=== PATIENT | female | born 1955 | race Caucasian/White ===

== ENCOUNTER 2018-04-23 18:24 | Observation (INO) ==
--- NOTE | 2018-04-23 23:00 | Internal Med History&Physical ---
Date of Encounter: 04/23/18 Time of Encounter: 23:02 Internal Medicine - H&P: HPI Chief complaint: slurred speech, raised troponin Admitted From: Hospital to Hospital Transfer Plans for Post Hospital Care: Home History of present illness: Ms. Renee is a 62 year old female Patient with history of hypothyroid secondary to thyroidectomy having difficulty in controlling thyroid level, hypertension, GERD, and grandmother had cardiac disease in mother had mini stroke in her 40s was transferred from [facility] for the evaluation of CVA workup and raised troponin. Patient states that she was doing okay until she started to feel whole-body shakiness with generalized weakness in whole body and slurred speech around 1: 30 PM when getting into the car to the commercial driver's seat. She exchanged the seat with her who drove the patient to the [facility] [place] after initial evaluation patient was transferred to [facility] for advance workup and care. CT head was negative. As per patient sometimes she get shakiness as a part of prior thyroid and was told by senior devops engineer to hold her thyroid medicine for 1 or 2 days therefore she did not take thyroid medicine today. She has an appointment with senior devops engineer this week. She denies perioral tingling or tingling to her arms or legs. She denies any localized numbness, tingling or weaknessor visual changes. She had chronic intermittent headache and had mild headache today. Patient denies fever chills chest pain, cough, melena, hemoptysis, abdominal pain urinary complaint or bowel complaint. She had shortness of breath throughout the episode of generalized shakiness today but after that resolved. She denies any shortness of breath at this time. During my interview patient denies any shakiness or weakness. Her slurred speech is also better . Patient denies smoking and alcohol history Past Med Surg Social Fam HX - Past Medical History Medical history: arthritis, GERD, hypertension, thyroid disease, other Additional medical history: Benign essential tremors. Psychiatric history: no psych history - Past Surgical History Surgical History: appendectomy, cholecystectomy, other Additional surgical history: Kidney stent right side, goiter removed from throat. - Social History Smoking Status: Never smoker Smokeless Tobacco Status: No Alcohol use: none Drug use: none Internal Medicine - H&P: Meds Levothyroxine Sodium [Synthroid] 275 mcg PO DAILY 12/16/15 [History] Lisinopril [Zestril] 40 mg PO DAILY 12/16/15 [History] Omeprazole Magnesium [Prilosec Otc] 40 mg PO DAILY 12/16/15 [History] Phenazopyridine HCl [Pyridium] 200 mg PO TIDAC #6 tab 04/14/18 [Rx] 3 Allergy/AdvReac Type Severity Reaction Status Date / Time Erythromycin Base Allergy Itching Verified 04/14/18 10:22 Penicillins [PCN] Allergy Difficulty Verified 04/14/18 10:22 Breathing All Systems PM: A 10-system review of systems was performed and is negative for pertinent findings except as documented above in the HPI. - Constitutional Vitals: Temp Pulse Resp BP Pulse Ox 97.9 F 81 16 117/75 96 04/23/18 20:51 04/23/18 20:51 04/23/18 20:51 04/23/18 20:51 04/23/18 20:51 Exam: General appearance: No acute distress, A&O X 3. Appears slightly anxious. Family at bedside, obese Head exam: Atraumatic Eye exam: EOMI, PERRLA ENT exam: Moist oral mucosa Neck nontender, supple Respiratory exam: Clear to auscultation bilaterally Cardiovascular exam: Regular rate and rhythm, no systolic murmur Abdominal exam: Soft, nontender, nondistended, positive bowel sounds Extremities exam: No calf tenderness, no pedal edema Present: Skin-no rash, warm, dry, intact Neurological exam: Alert, awake, oriented 3, CN II-XII intact, no focal deficits. No facial droop. Normal speech. Normal gait. No tremor. Motor 5 x 5 in all 4 extremities - Assessment and plan (1) Slurred speech Current Visit: No Status: Acute Assessment and plan: Slurred speech with generalized weakness. No focal neurological deficit on my examination. CT head negative. But patient has several risk factor including hypertension and family history and never had workup before. Will order MRI brain, carotid ultrasound, echocardiogram, PT OT and speech evaluation. Fall, aspiration, seizure precaution. Will consult neurologist if needed. Baby aspirin will be started. Fasting lipid profile ordered. (2) Elevated troponin I level Current Visit: No Status: Acute Assessment and plan: No active chest pain. Telemetry bed with serial troponin. Aspirin nitroglycerin statin and is started. Echocardiogram ordered. Will consult electric meter tester if further rise in troponin. (3) Hypertension Current Visit: No Status: Acute Assessment and plan: Well-controlled blood pressure. Continue close monitoring. Qualifiers: Hypertension type: essential hypertension Qualified Code(s): I10 - Essential (primary) hypertension (4) Hypothyroidism Current Visit: No Status: Acute Assessment and plan: Low TSH. Patient has hyperthyroidism like symptoms and get shakiness. Will hold thyroid medicine for tomorrow and resume after board. Close monitoring Qualifiers: Hypothyroidism type: postoperative Qualified Code(s): E89.0 - Postprocedural hypothyroidism (5) DVT prophylaxis Current Visit: No Status: Acute Assessment and plan: SCDs, heparin - Time Spent With Patient Total time spent is greater than 50% in coordination of care (as documented) at patient's floor/unit and/or counseling patient:
[2018-04-23] MEDS ORDERED: Naloxone 0.4 MG/ML INJ IVP PRN (23:02)
[2018-04-23] MEDS ORDERED: Dextrose Gel 15 GM/37.5 ML TUBE PO PRN ×2 (23:06)
[2018-04-23] MEDS ORDERED: D5% in Water 1,000 ML IVC PRN (23:06)
[2018-04-23] MEDS ORDERED: *HR* Dextrose 50 % in Water (Syg) 50 ML SYRINGE IVP PRN (23:06)
[2018-04-23] MEDS ORDERED: Nitroglycerin 0.4 MG TAB.SUBL SL PRN (23:06)
[2018-04-23 23:54] LABS: Prothrombin Time 11.6 Seconds (9.4-12.1)
[2018-04-24] MEDS ORDERED: *HR* Heparin 5,000 UNIT/ML VIAL IVP PRN (00:37)
[2018-04-24] MEDS ORDERED: *HR* Heparin 5,000 UNIT/ML VIAL IVP ONE (00:37)
[2018-04-24] MEDS: Insulin LISPRO 300 UNITS/3 ML VIAL SQ SCH ×4 (01:47→19:47)
[2018-04-24] MEDS: Acetaminophen 325 MG TABLET PO PRN (02:03)
[2018-04-24] MEDS: Heparin 25,000 UNIT/500 ML D5W 25,000 UNIT/500 ML BAG IVC SCH ×2 (02:07→23:45)
[2018-04-24] MEDS: 0.9 % Sodium Chloride 1,000 ML IVC SCH ×3 (02:16→20:20)
[2018-04-24] MEDS ORDERED: *HR* Heparin 5,000 UNIT/ML VIAL SQ SCH (06:00)
[2018-04-24 06:22] LABS: Bilirubin,Urine Negative (Negative); Blood,Urine Negative (Negative); Clarity,Urine Cloudy (Clear); Color,Urine Yellow (Yellow); Glucose,Urine (UA) Normal (Normal); Ketones,Urine Negative (Negative); Leukocyte Esterase,Urine Large (Negative); Nitrite,Urine Negative (Negative); Protein,Urine Negative (Neg-Trace); Specific Gravity,Urine 1.017 (1.010-1.025); Urobilinogen,Urine Normal (Normal)
[2018-04-24 06:26] LABS: Bacteria,Urine None Seen per hpf (None-Few); Hyaline Casts,Urine None Seen per lpf (None-Few); RBC,Urine 0-3 per hpf (0-3); Squamous Epithelial Cell,Urine Many per lpf (None-Few); WBC,Urine 30-50 per hpf (0-3)
[2018-04-24 06:46] LABS: Basophils # 0.1 K/mcL (0.0-0.2); Basophils % 0.7 %; Eosinophils # 0.3 K/mcL (0.0-0.6); Eosinophils % 4.4 %; Hematocrit 39.1 % (35.3-44.9); Hemoglobin 12.5 g/dL (11.5-15.4); Immature Granulocytes % 0.3 % (0-4); Lymphocytes # 2.1 K/mcL (0.6-4.6); Lymphocytes % 30.5 %; Mean Corpuscular Hemoglobin 28.2 pg (28.0-33.3); Mean Corpuscular Volume 88.3 fL (83.0-100.0); Mean Platelet Volume 10.9 fL (9.4-12.4); Monocytes # 0.7 K/mcL (0.0-1.3); Monocytes % 9.6 %; Neutrophils # 3.8 K/mcL (1.6-8.9); Platelet Count 185 K/mcL (140-400); Red Blood Count 4.43 M/mcL (3.82-4.97); Red Cell Distribution Width 13.9 % (11.5-14.5); Segmented Neutrophils % 54.5 %
[2018-04-24 07:10] LABS: BUN/Creatinine Ratio 19 (6-26); Blood Urea Nitrogen 18 mg/dL (8-23); Calcium 9.2 mg/dL (8.6-10.3); Carbon Dioxide 28 mEq/L (23-29); Chloride 109 mEq/L (98-107); Cholesterol 140 mg/dL (< 200); Glucose 92 mg/dL (70-105); HDL Cholesterol 35 mg/dL (40-59); LDL Cholesterol,Calculated 84 mg/dL (0-99); Osmolality,Calculated 296 (280-300); Potassium 4.1 mEq/L (3.5-5.1); Sodium 142 mEq/L (136-145); Triglycerides 106 mg/dL (< 150); eGFR For African Americans > 60 (> 60); eGFR For Non-African Americans 59 (> 60)
[2018-04-24 08:26] LABS: Heparin anti-factor XA UFH 0.29 IU/mL (0.30-0.70)
[2018-04-24 09:42] LABS: Activated Partial Thrombo Time 69.3 Seconds (26.0-36.0)
[2018-04-24] MEDS: Aspirin 81 MG TAB.CHEW PO SCH (10:27)
--- NOTE | 2018-04-24 10:52 | Cardiology Consult Note ---
<Gregoria Hatfield - Last Filed: 04/24/18 10:48> Date of Encounter: 04/24/18 Time of Encounter: 10:00 Assessment and Plan (1) Slurred speech Current Visit: No Status: Acute Per cardiology: -Admitted with slurred speach, headaches, weakness. -Head CT negative. -Brain MRI pending. -Management per primary service. (2) Elevated troponin Current Visit: Yes Status: Acute Per cardiology: -Troponins 0.06, 0.07, 0.07 in the setting of slurred speech, rule out CVA. Brain MRI pending, carotid pending. -Denies chest pain. -No acute ischemic ECG changes. -TTE with LVEF preserved, no segmental wall motion abnormalities. -ON asa, statin, heparin drip. -Do not suspect NSTEMI, suspect neurocardiogenic elevation in troponins. No cardiac rehab consult warranted at this time. -Will await brain MRI results. Will decide further cardiac work up pending brain MRI results. -Will start low dose beta patricia. (3) Palpitation Current Visit: Yes Status: Acute Per cardiology: -Reports "fluttering" -ECG with SR. -Telemetry reviewed with no arrythmias noted. -Occasional PVCs and occasional PACs. -Will start low dose beta patricia. Discussion w patient/family: The assessment and plan as outlined above was discussed with the patient who expressed understanding and agreement. All questions were answered. Thank you for involving us in the care of your patient. Please call with any questions. Discussed and reviewed with Dr.John Melgar. History of Present Illness Consult date: 04/24/18 Requesting physician: Katelyn Alvarez Consult reason: elevated troponin Chief complaint: weakness, slurred speach History of present illness: Ms. Renee is a 62 year old female with a relevant past medical history of hypothyroidism, GERD, depression, HTN, HLD who presented to [facility] with complaints of shakiness, difficulty walking. Patient also stated had a severe headache and slurred speech. Patient denies chest pain or shortness of breath. Does report increased fatigue. Patient also stated had some "fluttering" during epsisode. Past Med Surg Social Fam HX - Past Medical History Attestation: Yes The following information was validated with the patient. Source: patient, old records reviewed Medical history: arthritis, GERD, hyperlipidemia, hypertension, thyroid disease , other Additional medical history: Benign essential tremors. Psychiatric history: no psych history - Past Surgical History Surgical History: appendectomy, cholecystectomy, other Additional surgical history: Kidney stent right side, goiter removed from throat. - Social History Smoking Status: Never smoker Smokeless Tobacco Status: No Alcohol use: none Drug use: none Medications and Allergies Lisinopril [Zestril] 40 mg PO DAILY 12/16/15 [History] Omeprazole Magnesium [Prilosec Otc] 40 mg PO DAILY 12/16/15 [History] Levothyroxine [Levothyroxine Sodium] 274 mg PO DAILY 04/24/18 [History] Sucralfate [Carafate] 1 gm PO QID 04/24/18 [History] 3 Allergy/AdvReac Type Severity Reaction Status Date / Time Erythromycin Base Allergy Itching Verified 04/14/18 10:22 Penicillins [PCN] Allergy Difficulty Verified 04/14/18 10:22 Breathing All Systems Review: The remainder of the systems were reviewed and are negative - Constitutional Constitutional: headache(s), weakness - Cardiovascular Cardiovascular: as per HPI, palpitations - Neurological Neurological: abnormal speech Physical Examination Vital Signs, Last 4 Hours Temp Pulse Resp BP Pulse Ox 04/24/18 10:24 97.5 F L 60 16 114/73 95 04/24/18 07:32 97.9 F 57 16 115/75 96 General: Conversant, No Apparent Distress HEENT: Atraumatic, Normocephaly, Mucus Membranes Moist Neck: No JVD, Normal carotid pulses Cardiac: Reg Rate and Rhythm, Normal S1 and S2, No Murmur Lungs: Normal Breath Sounds, No Wheeze, Rales, Rhonchi Neuro: Alert and responsive, No focal deficits noted Abdomen: Soft, Non-Tender Skin: No rashes noted on visualized skin Musculoskeletal: No Chest Wall Tenderness Extremities: No Clubbing, No Cyanosis, No Edema, Normal Pulses Results 04/24/18 05:32 04/24/18 05:32 Lab Results Impressions Echocardiogram 04/24/18 08:00 Impressions: LVEF 55-60%. No evidence of PFO by color Doppler or agitated saline. If clinically indicated, elective DREW would provide improved diagnostic sensitivity for cardioembolic source. No pulmonary hypertension. No significant valvular dysfunction. Left Ventricular Wall Motion: Rest Echo Findings All wall segments showed normal motion. Findings: Study Quality * Technically adequate exam. Right Ventricle * Normal right ventricular structure and function. Right Atrium * Normal right atrial size. Interatrial Septum * No evidence of PFO by color Doppler or agitated saline Aorta * Normally sized aortic root. Pericardium * The pericardium appears normal. Left Atrium * Mildly dilated left atrium. Tricuspid Valve * Trace tricuspid regurgitation. * Estimated RVSP is 26 mmHg. * Estimated RA pressure is 0-5 mmHg. * No pulmonary hypertension. Aortic Valve * Trileaflet aortic valve. * Mildly calcified aortic valve leaflets. * No aortic regurgitation. * No aortic stenosis. Mitral Valve * Normal mitral valve structure. * No mitral stenosis. * Trace mitral regurgitation. IVC * Normal IVC dimensions and inspiratory collapse. Left Ventricle * No segmental dysfunction. * Normal left ventricular diastolic function. * LVEF 55-60%. Active Medications Acetaminophen (Tylenol) 650 mg PO Q6HR PRN PRN Reason: Headache Stop: 10/24/18 01:12 Last Admin: 04/24/18 02:03 Dose: 650 mg Aspirin (Aspirin) 81 mg PO DAILY OTONIEL Stop: 10/24/18 09:01 Last Admin: 04/24/18 10:27 Dose: 81 mg Atorvastatin Calcium (Lipitor) 20 mg PO HS OTONIEL Stop: 10/24/18 21:01 Dextrose/Water (Dextrose 50% (Syg)) 25 ml IVP AD PRN PRN Reason: Hypoglycemia Stop: 10/23/18 23:07 Glucagon (Glucagen) 1 mg IM ONCE PRN PRN Reason: Hypoglycemia Stop: 10/23/18 23:07 Glucose (Gluctose) 15 gm PO ONCE PRN PRN Reason: Hypoglycemia Stop: 10/23/18 23:07 Glucose (Gluctose) 30 gm PO ONCE PRN PRN Reason: Hypoglycemia Stop: 10/23/18 23:07 Heparin Sodium (Porcine) (Heparin) 4,000 unit IVP Q6HR PRN PRN Reason: SEE COMMENTS Stop: 10/24/18 00:38 Heparin Sodium (Porcine) (Heparin) 2,000 unit IVP Q6H PRN PRN Reason: SEE COMMENTS Stop: 10/24/18 00:38 Dextrose (Dextrose 5%) 1,000 mls @ 100 mls/hr IVC .Q10H PRN PRN Reason: HYPOGLYCEMIA Stop: 10/23/18 23:07 Heparin Sodium/Dextrose (Heparin 25,000 Unit/500 Ml D5w) 25,000 unit in 500 mls @ 20.033 mls/hr IVC .Q24H OTONIEL; 7.85 UNIT/KG/HR PRN Reason: Protocol Stop: 10/24/18 00:46 Last Titration: 04/24/18 10:28 Dose: 7.84 unit/kg/hr, 20.033 mls/hr Sodium Chloride (0.9 % Sodium Chloride) 1,000 mls @ 75 mls/hr IVC .[id number] OTONIEL Stop: 10/24/18 02:01 Last Infusion: 04/24/18 05:00 Dose: 0 mls/hr Insulin Human Lispro (Humalog) 0 units SQ Q6HR OTONIEL PRN Reason: Protocol Stop: 10/24/18 00:01 Last Admin: 04/24/18 06:19 Dose: Not Given Naloxone HCl (Narcan) 0.4 mg IVP Q2MIN PRN PRN Reason: SEE COMMENTS Stop: 10/23/18 23:03 Nitroglycerin (Nitroglycerin) 0.4 mg SL Q5MIN PRN PRN Reason: Chest Pain Stop: 10/23/18 23:07 Laboratory Tests 08/22/17 04/23/18 04/23/18 14:28 16:53 23:26 Hgb Potassium Creatinine Troponin I 0.06 H* 0.07 H* TSH 0.066 L 04/24/18 04/24/18 04/24/18 05:32 05:32 05:32 Hgb 12.5 Potassium 4.1 Creatinine 0.96 Troponin I 0.07 H* TSH - Imaging and Cardiology Chest Xray: report reviewed Echo: report reviewed - EKG Interpretation EKG results cardiology: personally reviewed (ECG with SR, HR 62.), other ( Telemetry reviewed with average HR previous 12 hours noted to be 65, SR. PVCs and PACS noted.) Consult Discharge Plan - Plan Referrals: Sherley Renee CNP [Primary Care Provider] - <Lukasz Melgar - Last Filed: 04/24/18 11:41> Date of Encounter: 04/24/18 - Attending Attestation I have personally performed a face to face evaluation on this patient. I have reviewed and agree with the care plan. History and Exam by me shows: Admitted with symptoms suggestive of TIA. Elevated troponin likely secondary to neurologic cause. Assessment and Plan Discussion w patient/family: The assessment and plan as outlined above was discussed with the patient and/or family members who expressed understanding and agreement. All questions were answered. Thank you for involving us in the care of your patient. Please call with any questions. History of Present Illness History of present illness: Ms. Renee is a 62 year old female All Systems Review: The remainder of the systems were reviewed and are negative Physical Examination Vital Signs, Last 4 Hours Temp Pulse Resp BP Pulse Ox 04/24/18 10:24 97.5 F L 60 16 114/73 95 Results 04/24/18 05:32 04/24/18 05:32 Lab Results 04/23/18 04/23/18 04/23/18 23:26 23:26 23:26 WBC Hgb Hct Plt Count INR 1.0 APTT 32.0 Sodium Potassium Chloride Carbon Dioxide BUN Creatinine Glucose Calcium Troponin I 0.07 H* B-Natriuretic Peptide 37 04/24/18 04/24/18 04/24/18 05:32 05:32 05:32 WBC 7.0 Hgb 12.5 Hct 39.1 Plt Count 185 INR APTT Sodium 142 Potassium 4.1 Chloride 109 H Carbon Dioxide 28 BUN 18 Creatinine 0.96 Glucose 92 Calcium 9.2 Troponin I 0.07 H* B-Natriuretic Peptide 04/24/18 07:30 WBC Hgb Hct Plt Count INR APTT 69.3 H D Sodium Potassium Chloride Carbon Dioxide BUN Creatinine Glucose Calcium Troponin I B-Natriuretic Peptide
[2018-04-24] MEDS: Metoprolol XL (24 HR) Succ 25 MG TAB.ER.24H PO SCH (13:00)
--- NOTE | 2018-04-24 13:07 | Internal Med Progress Note ---
Date of Encounter: 04/24/18 Time of Encounter: 13:07 - Assessment and plan (1) Elevated troponin I level Current Visit: No Status: Inactive Assessment and plan: No active chest pain. Troponins are negative 3 TTE with LVEF preserved no segmental wall motion abnormalities Continue with aspirin and statin on heparin drip Cardiology as patient appreciate recommendations-cardiology does not suspect and STEMI we will start on low-dose beta patricia (2) Slurred speech Current Visit: No Status: Acute Assessment and plan: Slurred speech with generalized weakness. No focal neurological deficit on my examination. CT head negative. Brain MRI pending PT OT speech evaluation We will consult neurology if MRI abnormal or any neurological changes Continue with aspirin and statin (3) Hypertension Current Visit: No Status: Acute Assessment and plan: Controlled at this time continue beta patricia Qualifiers: Hypertension type: essential hypertension Qualified Code(s): I10 - Essential (primary) hypertension (4) Hypothyroidism Current Visit: No Status: Acute Assessment and plan: Low TSH. Patient has hyperthyroidism like symptoms and get shakiness. We will hold Synthroid today and resume tomorrow continue to monitor closely. Patient does have an appointment with endocrinology next week. She does admit that she had thyroid removed and has difficulty with hypo/hyperthyroid sx, medications are adjusted frequently Qualifiers: Hypothyroidism type: postoperative Qualified Code(s): E89.0 - Postprocedural hypothyroidism (5) DVT prophylaxis Current Visit: No Status: Acute Assessment and plan: SCDs, heparin - Time Spent With Patient Total time spent is greater than 50% in coordination of care (as documented) at patient's floor/unit and/or counseling patient: - Subjective Interval history: Patient was seen and examined at bedside currently no neurological deficits noted. Patient is to undergo an MRI however she had a recent ureteral stent and will undergo MRI tomorrow in [facility] - Constitutional Vitals: Temp Pulse Resp BP Pulse Ox 97.5 F L 60 16 114/73 95 04/24/18 10:24 04/24/18 10:24 04/24/18 10:24 04/24/18 10:24 04/24/18 10:24 General appearance: Present: A&O X 3 - Head Head exam: Present: atraumatic, normocephalic - Eye Eye exam: Present: PERRL, conjuntiva pink, sclera anicteric Pupils: Present: PERRL - Neck Neck exam general surgery: Present: supple, trachea midline. Absent: lymphadenopathy - Respiratory Respiratory exam: Present: CTAB. Absent: accessory muscle use, rales, rhonchi, wheezes - Cardiovascular Cardiovascular exam: Present: RRR, +S1, +S2. Absent: diastolic murmur, gallop, rubs, systolic murmur - GI/Abdominal GI/Abdominal exam: Present: normal bowel sounds, soft, no peritoneal signs. Absent: distended, tenderness - Extremities Exam Extremities exam: Present: warm, radial pulses palpable and symmetrical. Absent : calf tenderness, cyanotic, pedal edema - Neurological Exam Neurological exam: Present: CN II-XII intact, oriented X3, no focal deficits. Absent: pronater drift, facial droop, speech deficit - Skin Skin exam: Present: dry, intact Internal Medicine: Result - Labs CBC & Chem 7: 04/24/18 05:32 04/24/18 05:32 Labs: Short CBC 04/24/18 Range/Units 05:32 WBC 7.0 (4.3-11.1) K/mcL Hgb 12.5 (11.5-15.4) g/dL Hct 39.1 (35.3-44.9) % Plt Count 185 (140-400) K/mcL Neutrophils # 3.8 (1.6-8.9) K/mcL BMP 04/24/18 05:32 Sodium 142 Potassium 4.1 Chloride 109 H Carbon Dioxide 28 BUN 18 Creatinine 0.96 Glucose 92 Calcium 9.2 Cardiac Enzymes 04/23/18 04/24/18 04/24/18 Range/Units 23:26 05:32 11:49 Troponin I 0.07 H* 0.07 H* 0.07 H* (< 0.04) ng/mL Urine 04/24/18 Range/Units 06:00 Urine Color Yellow (Yellow) Urine Clarity Cloudy A (Clear) Urine pH 6.0 (5.0-8.0) pH Units Ur Specific [place] 1.017 (1.010-1.025) Urine Protein Negative (Neg-Trace) mg/dL Urine Glucose (UA) Normal (Normal) mg/dL - ABG Interpretation ABG results: PT/INR, D-dimer PT 11.6 Seconds (9.4-12.1) 04/23/18 23:26 - Impressions Impressions Echocardiogram 07/04/18 08:00 Impressions: LVEF 55-60%. No evidence of PFO by color Doppler or agitated saline. If clinically indicated, elective DREW would provide improved diagnostic sensitivity for cardioembolic source. No pulmonary hypertension. No significant valvular dysfunction. Left Ventricular Wall Motion: Rest Echo Findings All wall segments showed normal motion. Findings: Study Quality * Technically adequate exam. Right Ventricle * Normal right ventricular structure and function. Right Atrium * Normal right atrial size. Interatrial Septum * No evidence of PFO by color Doppler or agitated saline Aorta * Normally sized aortic root. Pericardium * The pericardium appears normal. Left Atrium * Mildly dilated left atrium. Tricuspid Valve * Trace tricuspid regurgitation. * Estimated RVSP is 26 mmHg. * Estimated RA pressure is 0-5 mmHg. * No pulmonary hypertension. Aortic Valve * Trileaflet aortic valve. * Mildly calcified aortic valve leaflets. * No aortic regurgitation. * No aortic stenosis. Mitral Valve * Normal mitral valve structure. * No mitral stenosis. * Trace mitral regurgitation. IVC * Normal IVC dimensions and inspiratory collapse. Left Ventricle * No segmental dysfunction. * Normal left ventricular diastolic function. * LVEF 55-60%. - VTE Documentation of Mechanical Device: Intermittent pneumatic compression device Consult Discharge Plan - Plan Referrals: Sherley Renee CNP [Primary Care Provider] -
[2018-04-24] MEDS: *HR* Heparin 5,000 UNIT/ML VIAL IVP PRN (16:18)
[2018-04-24] MEDS ORDERED: GI Cocktail 40 ML EACH PO ONE (21:18)
[2018-04-24] MEDS: Pantoprazole 40 MG VIAL IVP SCH (21:45)
[2018-04-25] MEDS: Insulin LISPRO 300 UNITS/3 ML VIAL SQ SCH ×4 (00:07→17:12)
[2018-04-25 05:46] LABS: Basophils # 0.1 K/mcL (0.0-0.2); Basophils % 0.9 %; Eosinophils # 0.3 K/mcL (0.0-0.6); Hematocrit 39.2 % (35.3-44.9); Hemoglobin 12.5 g/dL (11.5-15.4); Immature Granulocytes % 0.3 % (0-4); Lymphocytes # 1.8 K/mcL (0.6-4.6); Lymphocytes % 27.5 %; Mean Corpuscular HGB Conc 31.9 g/dL (31.6-35.5); Mean Corpuscular Hemoglobin 28.2 pg (28.0-33.3); Mean Corpuscular Volume 88.3 fL (83.0-100.0); Mean Platelet Volume 10.9 fL (9.4-12.4); Monocytes # 0.6 K/mcL (0.0-1.3); Monocytes % 9.3 %; Neutrophils # 3.9 K/mcL (1.6-8.9); Platelet Count 177 K/mcL (140-400); Red Blood Count 4.44 M/mcL (3.82-4.97)
[2018-04-25 06:10] LABS: BUN/Creatinine Ratio 14 (6-26); Blood Urea Nitrogen 15 mg/dL (8-23); Calcium 9.1 mg/dL (8.6-10.3); Carbon Dioxide 28 mEq/L (23-29); Chloride 109 mEq/L (98-107); Glucose 97 mg/dL (70-105); Osmolality,Calculated 295 (280-300); Potassium 4.3 mEq/L (3.5-5.1); Sodium 142 mEq/L (136-145); eGFR For African Americans > 60 (> 60); eGFR For Non-African Americans 53 (> 60)
[2018-04-25] MEDS: Metoprolol XL (24 HR) Succ 25 MG TAB.ER.24H PO SCH (07:45)
[2018-04-25] MEDS: Pantoprazole 40 MG VIAL IVP SCH (07:45)
[2018-04-25] MEDS: Aspirin 81 MG TAB.CHEW PO SCH (07:45)
[2018-04-25] MEDS: 0.9 % Sodium Chloride 1,000 ML IVC SCH ×2 (07:52→22:46)
--- NOTE | 2018-04-25 08:42 | Electrocardiograph Report ---
[place] [id number] Test Date: 2018-04-24 Pat Name: Noemi Renee Department: 113 Room: [facility] Gender: F [employer] Mechanic: ALVA : 1955 Requested By: Katelyn Alvarez Order Number: [id number] Reading MD: Monico Harris Measurements Intervals [place] Rate: 62 P: 47 WI: 163 QRS: -5 QRSD: 102 T: -2 QT: 414 QTc: 419 Interpretive Statements SINUS RHYTHM WITH SINUS ARRHYTHMIA Electronically Signed On 04-25-2018 8:40:36 EDT by Monico Harris
--- NOTE | 2018-04-25 10:22 | Internal Med Progress Note ---
Date of Encounter: 04/25/18 Time of Encounter: 10:21 - Assessment and plan (1) Slurred speech Current Visit: No Status: Acute Assessment and plan: Slurred speech with generalized weakness. No focal neurological deficit on my examination. CT head negative. Brain MRI pending-will need to go to [facility] today dt previous renal stent PT OT speech evaluation We will consult neurology if MRI abnormal or any neurological changes Continue with aspirin and statin (2) Hypertension Current Visit: No Status: Acute Assessment and plan: Controlled at this time continue beta patricia Qualifiers: Hypertension type: essential hypertension Qualified Code(s): I10 - Essential (primary) hypertension (3) Hypothyroidism Current Visit: No Status: Acute Assessment and plan: Low TSH. Patient has hyperthyroidism like symptoms and get shakiness. We will hold Synthroid today and resume tomorrow continue to monitor closely. Patient does have an appointment with endocrinology next week. She does admit that she had thyroid removed and has difficulty with hypo/hyperthyroid sx, medications are adjusted frequently will monitor Qualifiers: Hypothyroidism type: postoperative Qualified Code(s): E89.0 - Postprocedural hypothyroidism (4) DVT prophylaxis Current Visit: No Status: Acute Assessment and plan: SCDs, heparin - Time Spent With Patient Total time spent is greater than 50% in coordination of care (as documented) at patient's floor/unit and/or counseling patient: - Subjective Interval history: Patient was seen and examined at bedside currently no neurological deficits noted. Patient is to undergo an MRI however she had a recent ureteral stent and will undergo MRI today at [facility] - Constitutional Vitals: Temp Pulse Resp BP Pulse Ox 98.0 F 63 18 131/80 96 04/25/18 07:21 04/25/18 07:21 04/25/18 07:21 04/25/18 07:21 04/25/18 07:21 General appearance: Present: A&O X 3 - Head Head exam: Present: atraumatic, normocephalic - Eye Eye exam: Present: PERRL, conjuntiva pink, sclera anicteric Pupils: Present: PERRL - Neck Neck exam general surgery: Present: supple, trachea midline. Absent: lymphadenopathy - Respiratory Respiratory exam: Present: CTAB. Absent: accessory muscle use, rales, rhonchi, wheezes - Cardiovascular Cardiovascular exam: Present: RRR, +S1, +S2. Absent: diastolic murmur, gallop, rubs, systolic murmur - GI/Abdominal GI/Abdominal exam: Present: normal bowel sounds, soft, no peritoneal signs. Absent: distended, tenderness - Extremities Exam Extremities exam: Present: warm, radial pulses palpable and symmetrical. Absent : calf tenderness, cyanotic, pedal edema - Neurological Exam Neurological exam: Present: CN II-XII intact, oriented X3, no focal deficits. Absent: pronater drift, facial droop, speech deficit - Skin Skin exam: Present: dry, intact Internal Medicine: Result - Labs CBC & Chem 7: 04/25/18 05:27 04/25/18 05:27 Labs: Short CBC 04/25/18 Range/Units 05:27 WBC 6.7 (4.3-11.1) K/mcL Hgb 12.5 (11.5-15.4) g/dL Hct 39.2 (35.3-44.9) % Plt Count 177 (140-400) K/mcL Neutrophils # 3.9 (1.6-8.9) K/mcL BMP 04/25/18 05:27 Sodium 142 Potassium 4.3 Chloride 109 H Carbon Dioxide 28 BUN 15 Creatinine 1.05 Glucose 97 Calcium 9.1 Cardiac Enzymes 04/24/18 Range/Units 11:49 Troponin I 0.07 H* (< 0.04) ng/mL - ABG Interpretation ABG results: PT/INR, D-dimer PT 11.6 Seconds (9.4-12.1) 04/23/18 23:26 - VTE Documentation of Mechanical Device: Intermittent pneumatic compression device Consult Discharge Plan - Plan Referrals: Sherley Renee CNP [Primary Care Provider] -
--- NOTE | 2018-04-25 11:16 | Event Note ---
Date of Encounter: 04/25/18 Time of Encounter: 11:14 - Cardiology Event Note Cardiology awaiting brain MRI to determine if further cardiology work up is warranted. Brain MRI results not available. Cardiology will make further recommendations pending MRI.
[2018-04-25 20:11] LABS: Heparin anti-factor XA UFH 0.57 IU/mL (0.30-0.70)
[2018-04-25] MEDS: Heparin 25,000 UNIT/500 ML D5W 25,000 UNIT/500 ML BAG IVC SCH (22:48)
[2018-04-26] MEDS: Insulin LISPRO 300 UNITS/3 ML VIAL SQ SCH ×4 (00:10→17:23)
[2018-04-26] MEDS: Metoprolol XL (24 HR) Succ 25 MG TAB.ER.24H PO SCH (08:25)
[2018-04-26] MEDS: Pantoprazole 40 MG VIAL IVP SCH (08:25)
[2018-04-26] MEDS: Aspirin 81 MG TAB.CHEW PO SCH (08:25)
[2018-04-26 09:05] LABS: Hemoglobin 12.3 g/dL (11.5-15.4); Mean Corpuscular HGB Conc 32.4 g/dL (31.6-35.5); Mean Corpuscular Hemoglobin 28.3 pg (28.0-33.3); Mean Corpuscular Volume 87.4 fL (83.0-100.0); Mean Platelet Volume 10.9 fL (9.4-12.4); Platelet Count 176 K/mcL (140-400); Red Blood Count 4.35 M/mcL (3.82-4.97); Red Cell Distribution Width 13.7 % (11.5-14.5)
[2018-04-26 09:22] LABS: BUN/Creatinine Ratio 16 (6-26); Blood Urea Nitrogen 14 mg/dL (8-23); Calcium 8.9 mg/dL (8.6-10.3); Carbon Dioxide 27 mEq/L (23-29); Chloride 110 mEq/L (98-107); Glucose 102 mg/dL (70-105); Osmolality,Calculated 293 (280-300); Sodium 141 mEq/L (136-145); eGFR For African Americans > 60 (> 60); eGFR For Non-African Americans > 60 (> 60)
[2018-04-26] MEDS: 0.9 % Sodium Chloride 1,000 ML IVC SCH (10:53)
--- NOTE | 2018-04-26 10:53 | Cardiology Progress Note ---
Date of Encounter: 04/26/18 Time of Encounter: 10:00 Assessment and Plan (1) Slurred speech Current Visit: No Status: Acute Per cardiology: -Admitted with slurred speach, headaches, weakness. -Head CT negative. -Brain MRI with no evidence of acute ischemia. -Management per primary service. (2) Elevated troponin Current Visit: Yes Status: Acute Per cardiology: -Troponins 0.06, 0.07, 0.07, 0.07 in the setting of slurred speech, rule out CVA. Brain MRI pending, carotid pending. -Denies chest pain. -No acute ischemic ECG changes. -TTE with LVEF preserved, no segmental wall motion abnormalities. -ON asa, statin, BB, heparin drip. -Discussed and reviewed with , with mildly elevated troponins and atypical symptoms, will plan for stress test. Patient educated that stress test will be 2 days. Patient states understanding. -Further recommendations pending stress. (3) Palpitation Current Visit: Yes Status: Acute Per cardiology: -Reports "fluttering" -ECG with SR. -Telemetry reviewed with no arrythmias noted. -Occasional PVCs and occasional PACs. -on BB Discussion w patient/family: The assessment and plan as outlined above was discussed with the patient who expressed understanding and agreement. All questions were answered. Thank you for involving us in the care of your patient. Please call with any questions. Discussed and reviewed with . Subjective Principal diagnosis: slurred speech, weakness Interval history: Patient denies chest pain, complains of a headache this morning. Objective Vital Signs, Last 4 Hours Temp Pulse Resp BP Pulse Ox 04/26/18 07:52 98.4 F 64 15 112/70 94 General: Conversant, No Apparent Distress HEENT: Atraumatic, Normocephaly, Mucus Membranes Moist Neck: No JVD, Normal carotid pulses Cardiac: Reg Rate and Rhythm, Normal S1 and S2, No Murmur Lungs: Normal Breath Sounds, No Wheeze, Rales, Rhonchi Neuro: Alert and responsive, No focal deficits noted Abdomen: Soft, Non-Tender Skin: No rashes noted on visualized skin Musculoskeletal: No Chest Wall Tenderness Extremities: No Clubbing, No Cyanosis, No Edema, Normal Pulses Results 04/26/18 08:41 04/26/18 08:41 Lab Results Impressions Brain MRI 04/25/18 00:01 IMPRESSION: No evidence of acute ischemia Mild chronic microvascular disease within the periventricular white matter D/ / 04/25/2018 14:06:28 Kirk Hinojosa MD / jake Interpreting Provider: Kirk Hinojosa MD Active Medications Acetaminophen (Tylenol) 650 mg PO Q6HR PRN PRN Reason: Headache Stop: 10/24/18 01:12 Last Admin: 04/24/18 02:03 Dose: 650 mg Aspirin (Aspirin) 81 mg PO DAILY OTONIEL Stop: 10/24/18 09:01 Last Admin: 04/26/18 08:25 Dose: 81 mg Atorvastatin Calcium (Lipitor) 20 mg PO HS OTONIEL Stop: 10/24/18 21:01 Last Admin: 04/25/18 20:22 Dose: 20 mg Dextrose/Water (Dextrose 50% (Syg)) 25 ml IVP AD PRN PRN Reason: Hypoglycemia Stop: 10/23/18 23:07 Glucagon (Glucagen) 1 mg IM ONCE PRN PRN Reason: Hypoglycemia Stop: 10/23/18 23:07 Glucose (Gluctose) 15 gm PO ONCE PRN PRN Reason: Hypoglycemia Stop: 10/23/18 23:07 Glucose (Gluctose) 30 gm PO ONCE PRN PRN Reason: Hypoglycemia Stop: 10/23/18 23:07 Heparin Sodium (Porcine) (Heparin) 4,000 unit IVP Q6HR PRN PRN Reason: SEE COMMENTS Stop: 10/24/18 00:38 Last Admin: 04/25/18 14:54 Dose: 4,000 unit Heparin Sodium (Porcine) (Heparin) 2,000 unit IVP Q6H PRN PRN Reason: SEE COMMENTS Stop: 10/24/18 00:38 Last Admin: 04/24/18 16:18 Dose: 2,000 unit Dextrose (Dextrose 5%) 1,000 mls @ 100 mls/hr IVC .Q10H PRN PRN Reason: HYPOGLYCEMIA Stop: 10/23/18 23:07 Heparin Sodium/Dextrose (Heparin 25,000 Unit/500 Ml D5w) 25,000 unit in 500 mls @ 20.033 mls/hr IVC .Q24H OTONIEL; 7.85 UNIT/KG/HR PRN Reason: Protocol Stop: 10/24/18 00:46 Last Titration: 04/26/18 06:16 Dose: 9.4 unit/kg/hr, 24 mls/hr Sodium Chloride (0.9 % Sodium Chloride) 1,000 mls @ 75 mls/hr IVC .[id number] [facility] Stop: 10/24/18 02:01 Last Admin: 04/25/18 22:46 Dose: 75 mls/hr Insulin Human Lispro (Humalog) 0 units SQ Q6HR OTONIEL PRN Reason: Protocol Stop: 10/24/18 00:01 Last Admin: 04/26/18 08:25 Dose: Not Given Metoprolol Succinate (Toprol Xl) 12.5 mg PO DAILY [facility] Stop: 10/24/18 11:16 Last Admin: 04/26/18 08:25 Dose: 12.5 mg Naloxone HCl (Narcan) 0.4 mg IVP Q2MIN PRN PRN Reason: SEE COMMENTS Stop: 10/23/18 23:03 Nitroglycerin (Nitroglycerin) 0.4 mg SL Q5MIN PRN PRN Reason: Chest Pain Stop: 10/23/18 23:07 Pantoprazole Sodium (Protonix) 40 mg IVP DAILY [facility] [place] Stop: 10/24/18 21:31 Last Admin: 04/26/18 08:25 Dose: 40 mg Laboratory Tests 04/26/18 04/26/18 08:41 08:41 Hgb 12.3 Creatinine 0.87 - Imaging and Cardiology Chest Xray: report reviewed Stress Test: pending Echo: report reviewed - EKG Interpretation EKG results cardiology: other (Telemetry reviewed with average HR previous 12 hours noted to be 62, SR. Occasional PVCs and PACs noted.) - VTE Documentation of Mechanical Device: Intermittent pneumatic compression device Consult Discharge Plan - Plan Referrals: Sherley Renee, DELIVERY RECRUITER [Primary Care Provider] -
[2018-04-26] MEDS ORDERED: Ketorolac 15 MG/ML VIAL IVP PRN (11:05)
--- NOTE | 2018-04-26 11:08 | Internal Med Progress Note ---
Date of Encounter: 04/26/18 Time of Encounter: 11:07 - Assessment and plan (1) Slurred speech Current Visit: No Status: Acute Assessment and plan: Originally presented with Slurred speech with generalized weakness. Currently clear speech and able to move extremities without difficulty No focal neurological deficit on my examination. CT head negative. Brain MRI-no evidence of acute ischemia PT OT speech evaluation We will consult neurology as needed Continue with aspirin and statin (2) Hypertension Current Visit: No Status: Acute Assessment and plan: Controlled at this time continue beta patricia Qualifiers: Hypertension type: essential hypertension Qualified Code(s): I10 - Essential (primary) hypertension (3) Hypothyroidism Current Visit: No Status: Acute Assessment and plan: Low TSH. Patient has hyperthyroidism like symptoms and get shakiness. We will hold Synthroid today and resume tomorrow continue to monitor closely. Patient does have an appointment with endocrinology next week. She does admit that she had thyroid removed and has difficulty with hypo/hyperthyroid sx, medications are adjusted frequently will monitor we will check TSH in a.m. Qualifiers: Hypothyroidism type: postoperative Qualified Code(s): E89.0 - Postprocedural hypothyroidism (4) DVT prophylaxis Current Visit: No Status: Acute Assessment and plan: SCDs, heparin (5) Elevated troponin Current Visit: Yes Status: Acute Assessment and plan: Patient did have elevated troponin on presentation 0.06 2.07 and 0.07 slurred. She did rule out MRI was negative for any acute infarct No ischemic EKG changes TTE with LVEF preserved no segmental wall motion or abnormalities 1 aspirin and statin beta patricia and heparin drip per cardiology Carotid duplex bilaterally normal Cardiology was consulted patient will undergo 2 day cardiac stress test - Time Spent With Patient Total time spent is greater than 50% in coordination of care (as documented) at patient's floor/unit and/or counseling patient: - Subjective Interval history: Patient was seen and examined at bedside currently no neurological deficits noted. Denies any chest pain or shortness of breath. She was seen by cardiology's recommending patient undergo cardiac stress test patient verbalized understanding - Constitutional Vitals: Temp Pulse Resp BP Pulse Ox 98.4 F 64 15 112/70 94 04/26/18 07:52 04/26/18 07:52 04/26/18 07:52 04/26/18 07:52 04/26/18 07:52 General appearance: Present: A&O X 3 - Head Head exam: Present: atraumatic, normocephalic - Eye Eye exam: Present: PERRL, conjuntiva pink, sclera anicteric - Neck Neck exam general surgery: Present: supple, trachea midline. Absent: lymphadenopathy - Respiratory Respiratory exam: Present: CTAB. Absent: accessory muscle use, rales, rhonchi, wheezes - Cardiovascular Cardiovascular exam: Present: RRR, +S1, +S2. Absent: diastolic murmur, gallop, rubs, systolic murmur - GI/Abdominal GI/Abdominal exam: Present: normal bowel sounds, soft, no peritoneal signs. Absent: distended, tenderness - Extremities Exam Extremities exam: Present: warm, radial pulses palpable and symmetrical. Absent : calf tenderness, cyanotic, pedal edema - Neurological Exam Neurological exam: Present: CN II-XII intact, oriented X3, no focal deficits. Absent: pronater drift, facial droop, speech deficit - Skin Skin exam: Present: dry, intact Internal Medicine: Result - Labs CBC & Chem 7: 04/26/18 08:41 04/26/18 08:41 Labs: Short CBC 04/26/18 Range/Units 08:41 WBC 7.2 (4.3-11.1) K/mcL Hgb 12.3 (11.5-15.4) g/dL Hct 38.0 (35.3-44.9) % Plt Count 176 (140-400) K/mcL BMP 04/26/18 08:41 Sodium 141 Potassium 4.0 Chloride 110 H Carbon Dioxide 27 BUN 14 Creatinine 0.87 Glucose 102 Calcium 8.9 - ABG Interpretation ABG results: PT/INR, D-dimer PT 11.6 Seconds (9.4-12.1) 04/23/18 23:26 - Impressions Impressions Brain MRI 04/25/18 00:01 IMPRESSION: No evidence of acute ischemia Mild chronic microvascular disease within the periventricular white matter D/ / 04/25/2018 14:06:28 Kirk Hino[facility]osa MD / [facility] Interpreting Provider: Kirk Hinojosa MD - VTE Documentation of Mechanical Device: Intermittent pneumatic compression device Consult Discharge Plan - Plan Referrals: Sherley Renee CNP [Primary Care Provider] - 05/02/18 11:00 am
[2018-04-26] MEDS: *HR* Heparin 5,000 UNIT/ML VIAL IVP PRN (19:30)
[2018-04-26] MEDS: Heparin 25,000 UNIT/500 ML D5W 25,000 UNIT/500 ML BAG IVC SCH (21:55)
[2018-04-27] MEDS: Insulin LISPRO 300 UNITS/3 ML VIAL SQ SCH ×4 (00:27→17:21)
[2018-04-27] MEDS: 0.9 % Sodium Chloride 1,000 ML IVC SCH (04:12)
[2018-04-27] MEDS ORDERED: *HR* HYDROcodone/Acet 5/325 mg TABLET PO PRN (09:38)
[2018-04-27] MEDS: Aspirin 81 MG TAB.CHEW PO SCH (09:39)
[2018-04-27] MEDS: Acetaminophen 325 MG TABLET PO PRN (09:40)
[2018-04-27] MEDS: Pantoprazole 40 MG VIAL IVP SCH (09:56)
[2018-04-27] MEDS: Metoprolol XL (24 HR) Succ 25 MG TAB.ER.24H PO SCH (10:07)
--- NOTE | 2018-04-27 13:09 | Event Note ---
Date of Encounter: 04/27/18 Time of Encounter: 13:08 - Cardiology Event Note STress test resulted with no evidence of ischemia or infarct. OK to discontinue heparin drip from cardiology standpoint. Cardiology will sign off and will follow in outpatient setting. Follow up set.
[2018-04-27 15:45] VITALS: BP 153/69
--- NOTE | 2018-04-27 17:11 | Discharge Summary ---
- NOTES TO OUTPATIENT PROVIDER Notes to Outpatient Provider: Patient did have a CVA workup was was negative. Troponins were elevated she was evaluated by cardiology underwent cardiac stress which was negative for any ischemia or infarct. TSH was low continue with Synthroid and follow up as outpatient Orders not resulted at time of discharge: Pending orders 04/26/18 10:38 NM velia perf SPECT multi [NM] Routine 04/26/18 11:01 TSH [Thyroid Stimulating Hormone] Routine Date of Encounter: 04/27/18 Time of Encounter: 17:09 - Discharge Diagnosis (1) Slurred speech Priority: Primary Status: Acute (2) Hypertension Priority: Secondary Status: Acute Qualifiers: Hypertension type: essential hypertension Qualified Code(s): I10 - Essential (primary) hypertension (3) Hypothyroidism Priority: Secondary Status: Acute Qualifiers: Hypothyroidism type: postoperative Qualified Code(s): E89.0 - Postprocedural hypothyroidism (4) Elevated troponin Priority: Secondary Status: Acute Hospital course: Ms. Renee is a 62 year old female past medical history of hypothyroid GERD depression hypertension hyperlipidemia presented to [facility] with complaints of shakiness difficulty walking headache and difficulty speaking. She also experienced a fluttering episode troponins were elevated on presentation EKG with sinus rhythm occurs O PVCs PACs on the monitor was started on a low-dose beta patricia as well as heparin drip per cardiology. CT of head was negative for any acute intracranial abnormalities MRI was negative carotid Dopplers with no plaque echo with EF 5560% no PFO. 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 Patient will also follow-up with cardiology as well as primary care provider since this provider knows her best and can adjust medications accordingly. Patient will be sent home with prescription of aspirin as well as beta patricia. Patient verbalizes understanding she is hemodynamically stable at this time and is ready for discharge. - Time Spent with Patient Total time spent providing and/or coordinating discharge services: - Discharge Medications Prescriptions: Aspirin 81 mg PO DAILY #30 tab.chew Metoprolol XL (24 HR) Succ [Toprol Xl] 12.5 mg PO DAILY #30 tab.er.24h Home Medications: Lisinopril [Zestril] 40 mg PO DAILY 12/16/15 [History] Omeprazole Magnesium [Prilosec Otc] 40 mg PO DAILY 12/16/15 [History] Levothyroxine [Levothyroxine Sodium] 274 mg PO DAILY 04/24/18 [History] Sucralfate [Carafate] 1 gm PO QID 04/24/18 [History] Aspirin 81 mg PO DAILY #30 tab.chew 04/27/18 [Rx] Metoprolol XL (24 HR) Succ [Toprol Xl] 12.5 mg PO DAILY #30 tab.er.24h 04/27/18 [Rx] Allergies/Adverse Reactions: 3 Allergy/AdvReac Type Severity Reaction Status Date / Time Erythromycin Base Allergy Itching Verified 04/14/18 10:22 Penicillins [PCN] Allergy Difficulty Verified 04/14/18 10:22 Breathing Date of admission: 04/23/18 20:01 Primary care physician: Sherley Renee CNP Consults: 04/23/18 23:04 Consult to Nursing Officer [CONS] Routine Reason for SW Consult: Discharge plan 04/24/18 00:36 Consult to Cardiology [CONS] Routine Comment: Consulting Provider: Cardiology [place] Reason for Consult: Raised troponin Call Completed: Yes Discharging clinician: Aissatou Vee Anticipated date of discharge: 04/27/18 - Constitutional Vitals: Temp Pulse Resp BP Pulse Ox 98.1 F 62 16 153/69 94 04/27/18 15:44 04/27/18 15:44 04/27/18 15:44 04/27/18 15:44 04/27/18 15:44 General appearance: Present: A&O X 3 - Head Head exam: Present: atraumatic, normocephalic - Eye Eye exam: Present: PERRL, conjuntiva pink, sclera anicteric Pupils: Present: PERRL - Neck Neck exam general surgery: Present: supple, trachea midline. Absent: lymphadenopathy - Respiratory Respiratory exam: Present: CTAB. Absent: accessory muscle use, rales, rhonchi, wheezes - Cardiovascular Cardiovascular exam: Present: RRR, +S1, +S2. Absent: diastolic murmur, gallop, rubs, systolic murmur - GI/Abdominal GI/Abdominal exam: Present: normal bowel sounds, soft, no peritoneal signs. Absent: distended, tenderness - Extremities Exam Extremities exam: Present: warm, radial pulses palpable and symmetrical. Absent : calf tenderness, cyanotic, pedal edema - Neurological Exam Neurological exam: Present: CN II-XII intact, oriented X3, no focal deficits. Absent: pronater drift, facial droop, speech deficit - Skin Skin exam: Present: dry, intact - Patient Status Disposition: Home, Self-Care Condition: Good Functional capacity at discharge: independent ambulation Overall status at discharge: patient is back to baseline - Discharge Instructions Follow Up With: Sherley Renee CNP [Primary Care Provider] - 05/02/18 11:00 am - Diet and Activity Activity: increase activity as tolerated Diet: advance to your usual diet - VTE Documentation of Mechanical Device: Intermittent pneumatic compression device
== END 2018-04-27 18:35 | disposition home or self-care (01) ==
LOC: 3BNU
PROVIDERS: ADMIT Student in an Organized Health Care Education/Training Program; ATTEND Student in an Organized Health Care Education/Training Program

== ENCOUNTER 2020-12-15 15:42 | Observation (INO) ==
[2020-12-15] MEDS ORDERED: 0.9 % Sodium Chloride 1,000 ML IVC ONE (16:14)
[2020-12-15 17:23] LABS: Bacteria,Urine Few per hpf (None-Few); Bilirubin,Urine Negative (Negative); Blood,Urine Negative (Negative); Clarity,Urine Clear (Clear); Color,Urine Yellow (Yellow); Glucose,Urine (UA) Normal (Normal); Ketones,Urine Negative (Negative); Leukocyte Esterase,Urine Moderate (Negative); Mucus,Urine Few per lpf (None-Few); Nitrite,Urine Negative (Negative); Protein,Urine Trace mg/dL (Neg-Trace); RBC,Urine 0-3 per hpf (0-3); Specific Gravity,Urine > 1.030 (1.010-1.025); Squamous Epithelial Cell,Urine Few per hpf (None-Few); Urobilinogen,Urine Normal (Normal)
[2020-12-15 18:03] LABS: Basophils % 0.5 %; Eosinophils # 0.5 K/mcL (0.0-0.6); Eosinophils % 6.1 %; Hematocrit 40.5 % (35.3-44.9); Hemoglobin 12.6 g/dL (11.5-15.4); Immature Granulocytes % 0.2 % (0-4); Lymphocytes # 1.8 K/mcL (0.6-4.6); Lymphocytes % 22.4 %; Mean Corpuscular HGB Conc 31.1 g/dL (31.6-35.5); Mean Corpuscular Hemoglobin 25.9 pg (28.0-33.3); Mean Corpuscular Volume 83.2 fL (83.0-100.0); Mean Platelet Volume 11.3 fL (9.4-12.4); Monocytes # 0.8 K/mcL (0.0-1.3); Monocytes % 9.7 %; Neutrophils # 4.9 K/mcL (1.6-8.9); Platelet Count 214 K/mcL (140-400); Red Blood Count 4.87 M/mcL (3.82-4.97); Segmented Neutrophils % 61.1 %
[2020-12-15 18:29] LABS: Alanine Aminotransferase 15 Units/L (7-52); Albumin 3.7 g/dL (3.5-5.7); Albumin/Globulin Ratio 1.2 (1.1-2.2); Alkaline Phosphatase 93 Units/L (34-104); Aspartate Amino Transferase 18 Units/L (13-39); BUN/Creatinine Ratio 22 (6-26); Bilirubin,Direct 0.1 mg/dL (0.0-0.2); Bilirubin,Indirect 0.2 mg/dL (0.0-1.0); Bilirubin,Total 0.3 mg/dL (0.3-1.0); Blood Urea Nitrogen 19 mg/dL (8-23); Calcium 9.2 mg/dL (8.6-10.3); Carbon Dioxide 26 mEq/L (23-29); Chloride 107 mEq/L (98-107); Globulin 3.1 g/dL (2.4-3.5); Glucose 97 mg/dL (70-105); Lipase 46 Units/L (11-82); Osmolality,Calculated 292 (280-300); Potassium 3.6 mEq/L (3.5-5.1); Sodium 140 mEq/L (136-145); Total Protein 6.8 g/dL (6.4-8.9); eGFR For African Americans > 60 (> 60); eGFR For Non-African Americans > 60 (> 60)
[2020-12-15] MEDS ORDERED: Aspirin 81 MG TAB.CHEW PO ONE (18:31)
[2020-12-15 19:51] LABS: Troponin I 0.06 ng/mL (< 0.04)
[2020-12-15] MEDS ORDERED: Naloxone 0.4 MG/ML INJ IVP PRN (19:54)
[2020-12-15] MEDS ORDERED: Ondansetron 4 MG/2 ML VIAL IVP PRN (20:04)
[2020-12-15] MEDS ORDERED: Ringers Solution, Lactated 1,000 ML IVC SCH (20:15)
[2020-12-15] MEDS ORDERED: Metoprolol XL (24 HR) Succ 25 MG TAB.ER.24H PO SCH (21:00)
[2020-12-15] MEDS: lisinopriL 10 MG TABLET PO SCH (23:29)
[2020-12-15] MEDS: *HR* Heparin 5,000 UNIT/ML VIAL SQ SCH (23:30)
[2020-12-16 00:41] LABS: Hematocrit 39.1 % (35.3-44.9); Hemoglobin 11.7 g/dL (11.5-15.4); Immature Granulocytes % 0.3 % (0-4); Lymphocytes % 28.5 %; Mean Corpuscular HGB Conc 29.9 g/dL (31.6-35.5); Mean Corpuscular Hemoglobin 25.4 pg (28.0-33.3); Mean Corpuscular Volume 84.8 fL (83.0-100.0); Mean Platelet Volume 11.2 fL (9.4-12.4); Monocytes % 9.5 %; Platelet Count 194 K/mcL (140-400); Red Blood Count 4.61 M/mcL (3.82-4.97); Red Cell Distribution Width 13.9 % (11.5-14.5); Segmented Neutrophils % 54.1 %; White Blood Count 6.9 K/mcL (4.3-11.1)
[2020-12-16 00:42] LABS: Basophils # 0.1 K/mcL (0.0-0.2); Basophils % 0.7 %; Eosinophils # 0.5 K/mcL (0.0-0.6); Eosinophils % 6.9 %; INR 1.1; Monocytes # 0.7 K/mcL (0.0-1.3); Neutrophils # 3.7 K/mcL (1.6-8.9); Prothrombin Time 12.8 Seconds (9.4-12.1)
[2020-12-16 00:54] LABS: BUN/Creatinine Ratio 22 (6-26); Blood Urea Nitrogen 20 mg/dL (8-23); Calcium 8.4 mg/dL (8.6-10.3); Carbon Dioxide 23 mEq/L (23-29); Chloride 110 mEq/L (98-107); Chol/HDL Ratio 3.9 (0-4.9); Cholesterol 89 mg/dL (< 200); Glucose 89 mg/dL (70-105); HDL Cholesterol 23 mg/dL (40-59); LDL Cholesterol,Calculated 52 mg/dL (< 100); Magnesium 1.2 mg/dL (1.6-2.6); Osmolality,Calculated 294 (280-300); Potassium 3.5 mEq/L (3.5-5.1); Sodium 141 mEq/L (136-145); Triglycerides 69 mg/dL (< 150); eGFR For African Americans > 60 (> 60); eGFR For Non-African Americans > 60 (> 60)
[2020-12-16 00:58] LABS: Troponin I 0.05 ng/mL (< 0.04)
[2020-12-16 01:09] LABS: Thyroid Stimulating Hormone < 0.010 mcIU/mL (0.340-5.600)
[2020-12-16 05:43] LABS: Troponin I 0.05 ng/mL (< 0.04)
[2020-12-16] MEDS: *HR* Heparin 5,000 UNIT/ML VIAL SQ SCH ×3 (06:18→20:31)
[2020-12-16 08:14] LABS: Triiodothyronine (T3) Free 2.98 pg/mL (2.50-3.90)
[2020-12-16] MEDS: Aspirin Enteric Coated 81 MG Tablet PO SCH (08:40)
[2020-12-16] MEDS ORDERED: Vitamin B Complex/Vit C/Vit E 1 EACH TABLET PO SCH (09:00)
[2020-12-16] MEDS ORDERED: Prochlorperazine 10 MG/2 ML VIAL IVP ONE (09:38)
[2020-12-16] MEDS: Vitamin B Complex/Vit C/Vit E 1 EACH TABLET PO SCH (11:10)
[2020-12-16] MEDS: lisinopriL 10 MG TABLET PO SCH (20:30)
[2020-12-17 03:48] LABS: Basophils # 0.1 K/mcL (0.0-0.2); Basophils % 0.9 %; Eosinophils # 0.4 K/mcL (0.0-0.6); Eosinophils % 7.4 %; Hematocrit 35.7 % (35.3-44.9); Hemoglobin 11.2 g/dL (11.5-15.4); Immature Granulocytes % 0.2 % (0-4); Lymphocytes # 1.8 K/mcL (0.6-4.6); Lymphocytes % 32.9 %; Mean Corpuscular HGB Conc 31.4 g/dL (31.6-35.5); Mean Corpuscular Hemoglobin 26.4 pg (28.0-33.3); Mean Platelet Volume 11.1 fL (9.4-12.4); Monocytes # 0.5 K/mcL (0.0-1.3); Monocytes % 9.3 %; Neutrophils # 2.7 K/mcL (1.6-8.9); Platelet Count 165 K/mcL (140-400); Red Blood Count 4.25 M/mcL (3.82-4.97); Segmented Neutrophils % 49.3 %; White Blood Count 5.4 K/mcL (4.3-11.1)
[2020-12-17 04:06] LABS: BUN/Creatinine Ratio 17 (6-26); Blood Urea Nitrogen 12 mg/dL (8-23); Calcium 8.8 mg/dL (8.6-10.3); Carbon Dioxide 24 mEq/L (23-29); Chloride 111 mEq/L (98-107); Glucose 97 mg/dL (70-105); Magnesium 1.8 mg/dL (1.6-2.6); Osmolality,Calculated 292 (280-300); Potassium 3.7 mEq/L (3.5-5.1); Sodium 141 mEq/L (136-145); eGFR For African Americans > 60 (> 60); eGFR For Non-African Americans > 60 (> 60)
[2020-12-17] MEDS: *HR* Heparin 5,000 UNIT/ML VIAL SQ SCH (05:39)
[2020-12-17] MEDS: Vitamin B Complex/Vit C/Vit E 1 EACH TABLET PO SCH (07:31)
[2020-12-17] MEDS: Aspirin Enteric Coated 81 MG Tablet PO SCH (07:31)
[2020-12-17 11:26] VITALS: BP 108/73
== END 2020-12-17 12:39 | disposition home or self-care (01) ==
LOC: 2ANU 15:42 → EMEROOARM 15:42 → SUATTDRO 19:34 → 2ANU 20:02
PROVIDERS: ADMIT Internal Medicine; ATTEND Student in an Organized Health Care Education/Training Program